=== PATIENT | male | born 2000 | race Two or more races ===

== ENCOUNTER 2025-07-16 21:46 | Emergency (ER) | payer SELFPAY ==
[2025-07-16 21:48] VITALS: BP 130/86
--- NOTE | 2025-07-17 00:07 | ED.SKININJ ---
HPI-Injury
General
Chief Complaint: BURN-MINOR
Source: patient
Exam Limitations: none
Time Seen by Provider: 07/16/25 23:35
Nursing documentation reviewed up to this point in time: agreed with
History of Present Illness-Injury
Is this injury a work related problem?: No
Is pt an associate of [facility]?: No
Initial Injury comments:
Patient to the emergency department with complaint of pain and burning to scrotum. He states he was diagnosed with genital warts approximately 2 months ago. States he noticed multiple scattered skin colored lesions to bilateral medial thighs.
States he was seen by a primary care provider and was told that this was genital warts. There were no lesions on the penis or scrotum. He was given a lotion to apply to these lesions but he does not recall the name. He states that after using the
lotion on these lesions he developed irritation to the scrotum. He felt that this was related to a possible fungal infection so he started applying Lotrimin cream. Since applying the cream the irritation to the scrotum has become much worse. He
now reports redness and burning. He has no pain redness or burning of his penis there are no lesions on the penis. He has no difficulty urinating. Brought self to the emergency department for evaluation
Past History
Past History
ED Past Medical History: None
Review of Systems
Review of Systems
Allergies reviewed?: Yes
All Other Systems: ROS reviewed and negative except as documented in HPI and ROS
Constitutional: Reports no symptoms
EENT: Reports no symptoms
Respiratory: Reports no symptoms
Cardiac: Reports no symptoms
ABD/GI: Reports no symptoms
: Reports no symptoms
Musculoskeletal: Reports no symptoms
Skin: Reports other (Pain and erythema to scrotum. Multiple scattered tiny skin colored vesicles to bilateral medial thighs)
Neurological: Reports no symptoms
Psychiatric: Reports no symptoms
Phy Exam
General Physical Exam
General Presentation: well appearing and mild distress
General age: appears stated age
General Skin: warm and dry
General Habitus: normal
General Mental: alert
Genitourinary Exam Male
Exam Male: circumcised, no discharge, normal testicular exam and other (Erythema and burning to scrotum consistent with an irritant dermatitis. No pain swelling erythema or lesions noted on penis. Multiple tiny skin colored vesicles noted to
bilateral medial thighs resembling molluscum contagiosum)
Musculoskeletal Exam
Musculoskeletal Exam: full ROM and neuro vasc intact
Skin Exam
Skin Exam: other (Erythema to scrotum. No lesions noted. Multiple tiny skin colored vesicles noted to medial thighs, resembling molluscum contagiosum.)
Psychiatric Exam
Psychiatric Exam: normal mood/affect
Course
Orders/Labs/Results
Orders:
Orders
07/17/25 00:03
Prednisone [Deltasone] 50 mg PO NOW STA
07/17/25 00:04
Lidocaine 2% [Lidocaine Uro-Jet 2%] 1 syringe TOPICAL NOW STA
Vital Signs
Initial and Last Documented VS:
Initial Vital Signs
Temp Pulse Resp BP Pulse Ox
98.5 F 60 18 130/86 98
07/16/25 21:48 07/16/25 21:48 07/16/25 21:48 07/16/25 21:48 07/16/25 21:48
Last Documented Vital Signs
Temp Pulse Resp BP Pulse Ox
98.5 F 60 18 130/86 98
07/16/25 21:48 07/16/25 21:48 07/16/25 21:48 07/16/25 21:48 07/16/25 21:48
*Pulse Oximetry
SaO2: 98
Patient hypoxic: no
*Critical Care Note
Total Time (30-74mins, 75-104mins- exclusive of procedures): Not Applicable
Update Note
Update Note:
Patient to the emergency department with complaint of burning and redness to his scrotum. He has been applying Lotrimin cream to scrotum for the past few weeks. He states he has been using a cream to vesicles on bilateral medial thighs that was
prescribed to him by another provider. He was told he had genital warts. Since using this cream on his thighs he has developed the erythema and burning to his scrotum. Symptoms became worse with the Lotrimin cream. Bilateral medial thighs with
multiple scattered skin colored tiny vesicles resembling molluscum contagiosum. There is no discharge. There is no pain redness swelling or lesions noted to his penis. Scrotum is red but not swollen. No lesions noted on scrotum. Recommend that
he stop current lotions that he is using. He was instructed to keep genital area clean with mild soap and water, dry well. He was given lidocaine gel to apply as needed for comfort. Will place on a prednisone taper to help reduce the irritation
to the skin. He will be discharged home and recommend follow-up with dermatology. He was given instructions on signs and symptoms to return to the emergency department and he is agreeable to this plan
ED Attending Note
-
Portions of this chart may have been created with voice recognition software.� Occasional wrong word or��sound alike� substitutions may have occurred due to the inherent limitations of voice recognition software.
Discharge Plan
Departure
Patient Disposition: Home (Routine Discharge)
Date of Disposition: 07/17/25
Time of Disposition: 00:04
Patient with high blood pressure during this ER visit?: No
Condition: Good
Covid-19: Not Applicable
Discharge Problem:
Rash
Instructions: Skin rash - ED (DC)
Prescriptions:
New
prednisone 10 mg Tablet
See Rx Instructions .ROUTE .COMPLEX Qty: 30 0RF
Rx Instructions:
Take By Mouth:
40 mg daily x3 days, 30 mg daily x3 days,
20 mg daily x3 days, 10 mg daily x3 days.
Referrals:
NONE,* [Family Provider, Internal Medicine]
Sona Virk MD [Consulting Staff, Dermatology] - Call in 1-3 days for appt
Activity Restrictions/Additional Instructions:
Stop applying the fungal cream. Keep area clean and dry. Follow up with dermatololgy.
Interventions
Interventions:
*Risk Screen - Suicide Last Done: 07/16/25 21:48
*Neglect/Abuse Screening Last Done: 07/16/25 21:48
Discharge Date and Time
Print Language: [place]
[2025-07-17] MEDS: DELTASONE 50 MG PO (00:12)
[2025-07-17] MEDS: LIDOCAINE URO-JET 2% 1 SYRINGE TOPICAL (00:12)
[2025-07-17 00:23] VITALS: BP 129/83
== END 2025-07-17 00:23 | disposition home or self-care (01) ==
LOC: EMR 21:46
PROVIDERS: EMERGENCY PHYSICIAN Emergency Medicine
DX: R21 Rash and other nonspecific skin eruption (principal); N50.82 Scrotal pain; R20.8 Other disturbances of skin sensation
CPT/HCPCS: 99283